=== PATIENT | female | born 1960 | race Caucasian/White ===

== ENCOUNTER 2024-01-06 13:33 | Emergency (ER) | payer OTHER ==
[~2024-01-06] VITALS: Ht 160 cm; Wt 74.4 kg
[2024-01-06 13:50] VITALS: BP 135/67; PULSE 69; RESP 18; TEMP 97.3; O2SAT 99
[2024-01-06] MEDS ORDERED: AMOX1TAB8 PO (14:40)
[2024-01-06 15:18] VITALS: BP 135/67; PULSE 69; RESP 18; TEMP 97.3; O2SAT 99
== END 2024-01-06 15:18 | disposition home or self-care (01) ==
LOC: MED 13:33
DX: S61.451A Open bite of right hand, initial encounter (principal); Z79.899 Other long term (current) drug therapy; W55.01XA Bitten by cat, initial encounter; Y93.89 Activity, other specified; Y92.89 Other specified places as the place of occurrence of the external cause; Y99.8 Other external cause status
CPT/HCPCS: 90471; 90715; 99283